=== PATIENT | male | born 1965 | race Caucasian/White ===

== ENCOUNTER 2021-07-28 23:16 | Emergency (ER) | payer OTHER ==
[2021-07-29 00:14] LABS: HEMOGLOBIN 15.6 gm/dl (14.0-17.5); RED BLOOD COUNT 5.1 M/UL (4.20-5.50); WHITE BLOOD COUNT 9.8 K/UL (4.5-11.0)
[2021-07-29 00:25] LABS: BUN/CREATININE RATIO 18 (0-10)
== END 2021-07-29 08:10 | disposition home or self-care (01) ==
LOC: ER1 23:16
PROVIDERS: Family Medicine
DX: R51.9 Headache, unspecified (principal); E11.9 Type 2 diabetes mellitus without complications; Z20.822 Contact with and (suspected) exposure to COVID-19; I11.9 Hypertensive heart disease without heart failure
CPT/HCPCS: 70450; 71045; 80053; 80307; 81001; 82550; 82553; 82962; 83874; 84484; 85025; 85610; 85652; 93005; 96374; 96375; 99284; J0360; J0780; J1200; J1885; J2270; J2405; J2550; U0002

== ENCOUNTER 2022-02-22 19:49 | Emergency (ER) | payer OTHER ==
[~2022-02-22] VITALS: Ht 177.8 cm; Wt 81.6 kg
[2022-02-22 20:07] LABS: HEMOGLOBIN 16.9 gm/dl (14.0-17.5); RED BLOOD COUNT 5.56 M/UL (4.20-5.50); WHITE BLOOD COUNT 12.4 K/UL (4.5-11.0)
[2022-02-23 04:11] LABS: HEMOGLOBIN 16.5 gm/dl (14.0-17.5)
[2022-02-23 07:54] LABS: HEMOGLOBIN 16.1 gm/dl (14.0-17.5); RED BLOOD COUNT 5.3 M/UL (4.20-5.50); WHITE BLOOD COUNT 14.7 K/UL (4.5-11.0)
== END 2022-02-23 11:11 | disposition other institution (70) ==
LOC: ER1 19:49
PROVIDERS: Family Medicine
DX: K92.1 Melena (principal); N17.9 Acute kidney failure, unspecified; R00.0 Tachycardia, unspecified; I25.10 Atherosclerotic heart disease of native coronary artery without angina pectoris; I10 Essential (primary) hypertension; E11.9 Type 2 diabetes mellitus without complications; Z90.89 Acquired absence of other organs; Z20.822 Contact with and (suspected) exposure to COVID-19; Z95.1 Presence of aortocoronary bypass graft
CPT/HCPCS: 70450; 71045; 80053; 80307; 81001; 82140; 82272; 82962; 85014; 85018; 85025; 85027; 85610; 86850; 86900; 86901; 93005; 96374; 96375; 96376; 99285; C9113; J0360; J2405; U0002